=== PATIENT | male | born 2000 | race Two or more races ===

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

== ENCOUNTER 2020-10-10 21:53 | Emergency (ER) | payer SELFPAY ==
[~2020-10-10] VITALS: Ht 177.8 cm; Wt 63.0 kg
[~2020-10-10 21:53] MED LIST changes: +AZIT250T6 PO; +ONDA4TAB7 PO
[2020-10-10 22:23] VITALS: BP 112/59
[2020-10-10] MEDS ORDERED: AMOX1TAB61 PO (23:07)
--- NOTE | 2020-10-10 23:10 | ED.ADGEN ---
Past Medical History Past Medical History: Bipolar, Other Additional Past Medical Histor: ADHD Past Surgical History: No Surgical History Smoking Status: Current Every Day Smoker Alcohol Use: Occasionally Drug Use: Marijuana General Adult EDM: Chief Complaint: ANIMAL BITE HPI: HPI: Patient is a 20-year-old previously healthy male who presents to the emergency room complaining of a dog bite to his left lower leg. Patient states that it was an unprovoked bite. They do know the dog. They state that the dog is never try to bite anyone but him previously. He is unsure whether or not he wants to get the rabies vaccines. He states the dog appears to be healthy. They are unsure if he has had his vaccines. He denies any significant pain. He did take ibuprofen prior to arrival. He is able to walk on it without difficulty. He has full range of motion of his ankle. Unknown last tetanus. Review of Systems: Review of Systems: Complete ROS is negative unless otherwise documented in HPI Current Medications: Current Medications Medications (Trade) Dose Ordered Sig/Dorian Start Time Stop Time Status Last Admin Dose Admin Diphtheria/ Tetanus/Acell Pertussis (ADACEL TDap SYRINGE) 0.5 ml ONCE ONCE 10/10/20 23:15 10/10/20 23:16 UNV Allergies: Allergies: Allergies Coded Allergies Type Severity Reaction Last Updated Verified No Known Drug Allergies 11/23/17 No Physical Exam: PE: General: Awake, alert, NAD. Well Nourished, well hydrated. Cooperative HEENT: Atraumatic, EOMI, PERRL, airway patent, moist oral mucosa Neck: Supple, trachea midline Respiratory: CTA bilaterally, normal effort, no wheezing/crackles CV: RRR, no murmur, cap refill <2 GI: Soft, nondistended, nontender, no masses MSK: No obvious deformities, normal range of motion of the ankle and foot on the left lower extremity Skin: Warm, dry, half centimeter laceration to the anterior toscano with some surrounding abrasions Neuro: A&O x3, speech NL, sensory and motor grossly intact, no focal deficits Psych: Normal affect, normal mood, not suicidal or homicidal Current Patient Data: Vital Signs: Vital Signs Date Time Temp Pulse Resp B/P (MAP) Pulse Ox O2 Delivery O2 Flow Rate FiO2 10/10/20 22:23 67 12 112/59 (76) 97 Room Air EKG: EKG: [] Heart Score: C/O Chest Pain: N/A Risk Factors: Risk Factors: DM, Current or recent (<one month) smoker, HTN, HLP, family history of CAD, obesity. Risk Scores: Score 0 - 3: 2.5% MACE over next 6 weeks - Discharge Home Score 4 - 6: 20.3% MACE over next 6 weeks - Admit for Clinical Observation Score 7 - 10: 72.7% MACE over next 6 weeks - Early Invasive Strategies Radiology/Procedures: Radiology/Procedures: [] Course & Med Decision Making: Course & Med Decision Making Pertinent Labs and Imaging studies reviewed. (See chart for details) Patient is 20-year-old male presents to the emergency room after being bitten by a dog. He does not have any gaping wounds. Tetanus was updated. He will be placed on Augmentin. I have discussed with him that if he decides to get the rabies vaccines he can follow-up with health department. Patient's test results and vitals while in the ED were fully reviewed and discussed with the patient. Patient is stable and at this time does not need admission to the hospital. We have discussed strict return precautions and the importance of following up with their Primary Care Physician. Patient stated understanding and was given an opportunity to ask any questions. Patient is in agreement with plan. Nunu Disclaimer: Nunu Disclaimer: This electronic medical record was generated, in whole or in part, using a voice recognition dictation system. Departure Departure Impression: Primary Impression: Dog bite Disposition: HOME / SELF CARE / HOMELESS Condition: STABLE Referrals: NO PCP (PCP) Patient Instructions: Animal Bite Scripts Amoxicillin/Potassium Clav (AUGMENTIN 875-125 TABLET) 1 Each Tablet 1 TAB PO Q12HR for 7 Days, #14 TAB Prov: MARIAA CONDE MD 10/10/20 MARIAA CONDE MD Oct 10, 2020 23:09
[2020-10-10] MEDS: DIPH,PERTUSS(ACELL),TET VAC/PF 0.5 ML SYRINGE. VAX IM ONE (23:16)
== END 2020-10-10 23:32 | disposition home or self-care (01) ==
LOC: ER 21:53
DX: S81.852A Open bite, left lower leg, initial encounter (principal); F31.9 Bipolar disorder, unspecified; F17.200 Nicotine dependence, unspecified, uncomplicated; W54.0XXA Bitten by dog, initial encounter; Y93.89 Activity, other specified; Y92.89 Other specified places as the place of occurrence of the external cause; Y99.8 Other external cause status
CPT/HCPCS: 90471; 90715; 99283-25

== ENCOUNTER 2020-12-16 00:19 | Emergency (ER) | payer SELFPAY ==
[~2020-12-16] VITALS: Ht 180.3 cm; Wt 64.1 kg
[~2020-12-16 00:19] MED LIST changes: +AMOX1TAB61 PO
--- NOTE | 2020-12-16 01:16 | EKG ---
[facility] [address] [place] [address] Test Date: 2020-12-16 Test Time: 01:00:44 Pat Name: GUEVARA ALLEN Department: Room: Gender: M Acid Adjuster: : 2000 Requested By: MARIAA CONDE Order Number: [id number] Reading MD: Carrillo Adams Measurements Intervals [place] Rate: 91 P: 65 [place]: 142 QRS: 66 QRSD: 80 T: 62 QT: 320 QTc: 395 Interpretive Statements SINUS RHYTHM LEFT ATRIAL ABNORMALITY ABNORMAL ECG RI6.01 No previous ECG available for comparison Electronically Signed On 12-18-2020 12:01:04 CDT by Carrillo Adams
--- NOTE | 2020-12-16 01:45 | RAD ---
Chest, PA and Lateral: Technique: PA and lateral views of the chest were obtained. History: Chest pain. Comparison: 04/22/2019. Findings: The heart and pulmonary vasculature appear within normal limits. The lungs are clear. The pleural ma rgins are clear. Impression: No acute chest process is seen. Electronically signed by: Pk Redding MD (12/16/2020 1:43 AM) [id number]
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
[2020-12-16 02:03] VITALS: BP 133/61
== END 2020-12-16 02:08 | disposition home or self-care (01) ==
LOC: ER 00:19
DX: T75.4XXA Electrocution, initial encounter (principal); R07.89 Other chest pain; F31.9 Bipolar disorder, unspecified; F17.200 Nicotine dependence, unspecified, uncomplicated; F90.9 Attention-deficit hyperactivity disorder, unspecified type; Y08.89XA Assault by other specified means, initial encounter; Y93.89 Activity, other specified; Y92.89 Other specified places as the place of occurrence of the external cause; Y99.8 Other external cause status
CPT/HCPCS: 71046; 93005; 99285-25